=== PATIENT | female | born 1950 | race Caucasian/White ===

== ENCOUNTER 2023-11-25 09:39 | Emergency (ER) | payer MEDICARE ==
[2023-11-25] VITALS (8 sets, daily range): BP systolic 164–237; BP diastolic 54–90
[~2023-11-25] VITALS: Ht 170.2 cm; Wt 124.0 kg
[2023-11-25] MEDS ORDERED: FLEXERIL5 M1 PO (12:03)
[2023-11-25] MEDS ORDERED: TRAMADOL HYDROC50 M1 PO (12:03)
== END 2023-11-25 12:20 | disposition home or self-care (01) ==
LOC: ED 09:39
DX: M54.41 Lumbago with sciatica, right side (principal); E03.9 Hypothyroidism, unspecified; I10 Essential (primary) hypertension; E78.5 Hyperlipidemia, unspecified; I48.91 Unspecified atrial fibrillation